=== PATIENT | female | born 1945 | race Caucasian/White ===

== ENCOUNTER 2016-11-20 06:24 | Inpatient (IN) | payer OTHER ==
--- NOTE | ~2016-11-20 | OP ---
Record Of Operation [facility] [address] [place]. [address] NAME: YENI COLLAZO : 43 STATUS : ADM IN PAT#: [id number] AGE: 71 ADM/REG DATE : 11/20/16 MR#: [id number] REPORT SERV DATE: 11/20/16 DICTATED BY: JAMIR OLIVARES DATE: 11/20/16 REPORT STATUS : Draft TRANSCRIBED BY: MODL DATE: 11/20/16 DATE OF PROCEDURE: 11/20/2016 PREOPERATIVE DIAGNOSIS: Metastatic lung cancer to the right adrenal gland. POSTOPERATIVE DIAGNOSIS: Metastatic lung cancer to the right adrenal gland. PROCEDURE: Laparoscopic right adrenalectomy. SURGEON: Jamir Olivares MD. PHLEBOTOMIST MEDICAL LAB ASSISTANT: Rod Patel MD. ANESTHESIA: General. ESTIMATED BLOOD LOSS: 200 mL. SPECIMEN: Right adrenal gland. COMPLICATIONS: None. BRIEF HISTORY: Ms Collazo is a 71-year-old woman who has had a previous partial lung resection secondary to cancer, who presented with a new right adrenal mass. It was negative for pheochromocytoma. She was presented at [facility] and felt that resection was most prudent. Laparoscopic right adrenalectomy, possible open was recommended. The procedure with the risks including like threatening bleeding, requiring transfusion or open procedure; infection; recurrence of the tumor; possibility of identifying unresectable disease, and injury to the liver, kidney, or intestine were all explained and she agreed to proceed. DESCRIPTION OF PROCEDURE: After consent was obtained, she was taken to the operating room and placed in a supine position on the operating table. General endotracheal anesthesia was administered. She was placed in left lateral decubitus position. The bed was flexed and the perez bag was inflated for positioning. Axillary roll was inserted. All joints were appropriately padded and she was secured appropriately. We then prepped the right abdomen and draped it in normal sterile fashion. Preoperative antibiotics were administered. SCDs were placed. Time-out was performed. We began marking our incision sites with 3 in the right upper quadrant. We began at the midclavicular line and used open technique to insert an 11 mm trocar. The abdomen was insufflated to 15 mmHg of CO2 gas. The scope was inserted. There was no evidence of injury upon placement of the trocar. After infiltration of local anesthesia and under direct visualization, a 5 mm trocar was placed in the lateral right upper quadrant followed by an additional 5 mm trocar in between these two. We placed an additional port just to the right side of the umbilicus for the camera. We began using the LigaSure and taking down the right triangular ligament as far back as Record Of Operation [facility] [address] [place]. [address] NAME: YENI COLLAZO : 43 STATUS : ADM IN PAT#: [id number] AGE: 71 ADM/REG DATE : 11/20/16 MR#: [id number] REPORT SERV DATE: 11/20/16 DICTATED BY: JAMIR OLIVARES DATE: 11/20/16 REPORT STATUS : Draft TRANSCRIBED BY: MODL DATE: 11/20/16 possible in the liver and then we placed a liver retractor to elevate the right lobe of the liver. Used hook cautery to separate the attachments of the liver to the adrenal gland itself, which was very large. We then worked this medially to identify the vena cava. Vena cava was somewhat compressed by the mass at the superior medial aspect. We then began at the inferior pole of the adrenal gland and elevated it off the kidney, and then worked it medially up the lateral aspect of the vena cava using electrocautery. We identified the adrenal vein as it was coming off the somewhat compressed portion of the superior medial aspect of the adrenal gland. It was very large. We were able to get around it circumferentially, however, it was too large to even place a clip on. We then removed one of our 11 mm trocars, placed a vascular stapler within the abdomen and divided the vein. We then continued dissection medially. The gland was very friable, and just with attempted mobilization, the capsule fractured medially. We contained this as much as possible and continued to dissect this off the retroperitoneum and the diaphragm. Once we had off the vena cava completely, we took it off the superior pole of the kidney, elevated it and took the remaining attachments to the diaphragm and the superior lateral attachments using the LigaSure. We then enlarged our medial 11 mm trocar site and removed the trocar and placed a 15 mm Endobag within the abdomen. We then placed the adrenal gland within the Endobag. We then pulled it up and draped out the abdomen, so as not to have any spillage of any of the contents. I clamped the bag using a Jacy clamp to prevent any spillage. We then enlarged our incision as well as our muscle and fascial opening until we were able to remove the gland. It was then passed off the field. We then were able to regain pneumoperitoneum and then we irrigated the cavity copiously with sterile water in order to lyse any potential spilled cells. We removed any areas of tissue that we could obviously see and the cavity was dry and there was no residual tumor that we could see. We then removed all trocars under direct visualization, there was no evidence of bleeding. The abdomen was desufflated. The extraction site was closed in two layers using a posterior row of running 0 Vicryl suture and an anterior row of interrupted 0 PDS. All skin incisions were irrigated with sterile saline and closed using a 4-0 Monocryl subcuticular stitch. The abdomen was cleaned and Dermabond was applied. The patient tolerated the procedure well, was extubated in the operating room, and sent to the recovery room in stable condition. WG/MODL Jamir Olivares MD / [id number] CC: Jamir Olivares MD
--- NOTE | ~2016-11-20 | CN ---
Consultation Report [facility] [address] [place]. [address] NAME: YENI JOHN : 43 STATUS : ADM IN PAT#: [id number] AGE: 71 ADM/REG DATE : 11/20/16 MR#: [id number] REPORT SERV DATE: 11/21/16 DICTATED BY: BRAD MOYER DATE: 11/21/16 REPORT STATUS : Draft TRANSCRIBED BY: MODL DATE: 11/21/16 CONSULT NOTE DATE OF CONSULTATION: ONCOLOGIST: Dr. Mar. Consult coming from our Anesthesia Department, Dr. Ruiz, for right eye pain. HISTORY OF PRESENT ILLNESS: This is a 71-year-old female with a history of lung cancer. Had a left lower lung resection in September of 2015. She also underwent a radiotherapy. The patient has been followed by Dr. Mar, and about earlier part of this year in September, she has a large adrenal mass and several pulmonary nodules. The patient then underwent a laparoscopic right adrenalectomy and after which the patient started having some abdominal pain and right eye pain. She was placed on pain medications and also corneal abrasion protocol, and we are now consulted for eye pain. The patient denies any fever, chills, or sweats. No chest pains or abdominal pain prior to the surgery. Positive for palpitations, dyspnea on exertion. She did not have any urinary or bowel changes. REVIEW OF SYSTEMS: The 14-point review of systems is negative except as above. PAST MEDICAL HISTORY: Includes the above, macular degeneration, anxiety, and depression. It is written down in several of her chart that she has COPD, but she denies. She had a hysterectomy, cholecystectomy, breast biopsy, colonoscopy, toe surgery. SOCIAL HISTORY: She used to smoke a pack a day, but quit on 01/25/2016. She does not drink or use recreational drugs. FAMILY HISTORY: Breast cancer in maternal grandmother and siblings. Heart problems with the father. ALLERGIES: SHE IS ALLERGIC TO PROZAC. MEDICATIONS: She is on Xanax, aspirin, Cardizem, Tylenol, flecainide, Sutton, Zofran. PHYSICAL EXAMINATION: GENERAL: She is alert and oriented x3, not in cardiopulmonary distress. VITAL SIGNS: Includes a temperature of 97.3, blood pressure of 142/61, saturating at 100% on 2 L, pulse rate of 70, respirations of 18. NECK: She has supple neck. No JVD or carotid bruits. No lymphadenopathy. HEENT: Conjunctivae. Anicteric sclerae. No pharyngeal erythema. LUNGS: Clear lungs. No rales. No wheezes. CARDIOVASCULAR: Regular rate and rhythm. No murmurs appreciated. Consultation Report [facility] [id number] [id number] NAME: YENI JOHN : 43 STATUS : ADM IN PAT#: [id number] AGE: 71 ADM/REG DATE : 11/20/16 MR#: [id number] REPORT SERV DATE: 11/21/16 DICTATED BY: BRAD MOYER. DATE: 11/21/16 REPORT STATUS : Draft TRANSCRIBED BY: RYLIE DATE: 11/21/16 ABDOMEN: Positive bowel sounds. Soft. There is tenderness in the right upper quadrant area, right lower quadrant area. No rebound, guarding, or masses. EXTREMITIES: Fair pulses. No edema. NEURO: Nonlocalizing. Examination of the eyes reveals full EOMs. Pupils 2 mm, equally reactive to light. There are good corneal reflexes. Funduscopy, I only saw some blood vessels, but I could not appreciate the retina very well. ASSESSMENT: 1. Status post right adrenalectomy. 2. Metastatic lung cancer. 3. Right eye pain. 4. Depression and anxiety. 5. Atrial fibrillation. 6. Questionable chronic obstructive pulmonary disease. PLAN: Place the patient on oxygen and bronchodilator. It is unclear on the etiology of the eye pain. Corneal abrasion is a possibility, but I am unable to be certain. I agree with the corneal abrasion protocol and Ophthalmology consult. She will need further specialized equipment to check the right eye which the Ophthalmology has. Continue flecainide, Cardizem, and monitor in telemetry. I will defer pain management to you. Thank you for this consult. KAITLIN/RYLIE Brad Moyer M.D. / [id number] CC: MD Bibiana Major M.D.
[~2016-11-20 06:24] MED LIST: ACET500CAP PO; ADVIL PO; ASAB PO; CARD30 PO; CARDCD120 PO; FLECAINIDE50 MG PO; HEMOCYTET PO; KLONOPIN WAF0.25 MG PO; LORTAB 5 PO; NORCO1 TA1 PO; PCET PO; TYLENOL PM PO; VITAMIN B12 OTC PO; VITS/HERBS/SUPPLEMEN; X5 PO; ZOFRAN4 PO; ZOLOFT25 MG PO
[2016-11-21 07:21] LABS: BASOPHILS 0.1 %; BASOPHILS ABSOLUTE 0.01 10/3/uL (0.0-0.16); EOSINOPHILS 0 %; HEMOGLOBIN 11.9 g/dL (12.0-16.0); IMMATURE GRANULOCYTES 0.3 %; IMMATURE GRANULOCYTES ABSOLUTE 0.03 10/3/uL (0.0-0.11); LYMPHOCYTES 12.3 %; LYMPHOCYTES ABSOLUTE 1.08 10/3/uL (0.67-4.30); MEAN CORPUS HGB CONC 32.2 g/dL (32.0-36.0); MEAN CORPUSCULAR HEMOGLOB 30.4 pg (26.0-34.0); MEAN CORPUSCULAR VOLUME 94.4 fL (80-100); MEAN PLATELET VOLUME 9.1 fL (9.2-13.0); MONOCYTES 5.8 %; MONOCYTES ABSOLUTE 0.51 10/3/uL (0.21-1.20); NEUTROPHILS 81.5 %; NEUTROPHILS ABSOLUTE 7.13 10/3/uL (2.02-8.40); RBC DISTRIBUTION WIDTH 12.4 % (12.0-16.0); RED CELL COUNT 3.92 10/6/uL (4.0-5.6)
[2016-11-21 07:25] LABS: MANUAL DIFF NO %; PLATELET COUNT 315 10/3/uL (150-400); WHITE BLOOD CELLS 8.8 10/3/uL (4.5-10.5)
[2016-11-21 07:28] LABS: CALCIUM, SERUM 8.8 MG/DL (8.5-10.4); CHLORIDE, SERUM 102 MMOL/L (96-112); CO2 (CARBON DIOXIDE) 26 MMOL/L (24-34); CREATININE 0.63 MG/DL (0.55-1.02); GFR AFRICAN AMERICAN 104 ML/MIN (>=60); GFR NON AFRICAN AMERICAN 90 ML/MIN (>=60); GLUCOSE, SERUM 137 MG/DL (60-99); POTASSIUM, SERUM 4.5 MMOL/L (3.5-5.3); SODIUM, SERUM 138 MMOL/L (135-148)
[2016-11-21 07:29] LABS: BUN (BLOOD UREA NITROGEN) 8 MG/DL (6-23)
[2016-11-22 06:33] LABS: BUN (BLOOD UREA NITROGEN) 7 MG/DL (6-23); CALCIUM, SERUM 8.5 MG/DL (8.5-10.4); CHLORIDE, SERUM 101 MMOL/L (96-112); CO2 (CARBON DIOXIDE) 29 MMOL/L (24-34); CREATININE 0.47 MG/DL (0.55-1.02); GFR AFRICAN AMERICAN 114 ML/MIN (>=60); GFR NON AFRICAN AMERICAN 99 ML/MIN (>=60); GLUCOSE, SERUM 118 MG/DL (60-99); SODIUM, SERUM 140 MMOL/L (135-148)
[2016-11-22] MEDS ORDERED: PERCOCET 7.5/321 TAB PO (14:24)
[2016-11-22] MEDS ORDERED: AMB5 PO (14:24)
[2017-03-22] MEDS ORDERED: DEPAKOTEER PO (21:16)
[2017-03-22] MEDS ORDERED: ASAB PO (21:18)
[2017-03-22] MEDS ORDERED: FLECAINIDE50 MG PO (21:18)
[2017-03-22] MEDS ORDERED: CARD30 PO (21:18)
[2017-03-22] MEDS ORDERED: X5 PO (21:18)
[2017-03-22] MEDS ORDERED: NORCO1 TA2 PO (21:18)
[2017-03-22] MEDS ORDERED: ADVIL PO (21:19)
== END 2016-11-22 15:18 | disposition home or self-care (01) | DRG 614 ==
LOC: SDC/OF 06:24 → PACU 12:38 → 5SO 14:32
PROVIDERS: Surgery
PROC: 0GT34ZZ Resection of Right Adrenal Gland, Percutaneous Endoscopic Approach (ICD-10-PCS; principal; 2016-11-20 08:15)
DX: C79.71 Secondary malignant neoplasm of right adrenal gland (principal); C34.90 Malignant neoplasm of unspecified part of unspecified bronchus or lung; I48.91 Unspecified atrial fibrillation; F41.8 Other specified anxiety disorders; H35.30 Unspecified macular degeneration; H57.11 Ocular pain, right eye; Z87.891 Personal history of nicotine dependence; Z80.3 Family history of malignant neoplasm of breast; Z79.82 Long term (current) use of aspirin
CPT/HCPCS: 36415; 80048; 82330; 83735; 84100; 85014; 85018; 85025; 86850; 86900; 86901; 86920; 88307; 93005; 94640; A9270-GY; J0690; J1170; J2250; J2370; J2405; J2710; J2795; J3010; P9045